=== PATIENT | male | born 1985 | race Caucasian/White ===

== ENCOUNTER 2024-01-09 16:07 | Emergency (ER) | payer OTHER ==
[~2024-01-09] VITALS: Ht 180.3 cm; Wt 104.3 kg
[2024-01-09 16:23] VITALS: BP_SYST 114; PULSE 64; RESP 16; TEMP 97; O2SAT 97
[2024-01-09 16:50] LABS: BASOPHILS % (AUTO) 0.5 % (0.0-2.0); EOSINOPHILS # (AUTO) 0.3 K/uL (0.0-0.4); EOSINOPHILS % (AUTO) 3.9 % (0.0-4.0); HEMOGLOBIN 15.6 g/dL (14.0-18.0); LYMPHOCYTES # (AUTO) 2.3 K/uL (1.0-5.5); LYMPHOCYTES % (AUTO) 26.8 % (20.5-51.5); MEAN CORPUSCULAR HEMOGLOBIN 28 pg (27-31); MEAN CORPUSCULAR HGB CONC 34 % (32-36); MEAN CORPUSCULAR VOLUME 83 fL (79.0-98.0); MONOCYTES # (AUTO) 0.7 K/uL (0.0-1.0); MONOCYTES % (AUTO) 8.5 % (1.7-9.3); NEUTROPHILS # (AUTO) 5.1 K/uL (1.8-7.7); NEUTROPHILS % (AUTO) 60.3 % (40.0-70.0); PLATELET COUNT (AUTO) 230 K/uL (130-430); RED BLOOD CELL COUNT(AUTO) 5.54 MIL/uL (4.2-6.2); RED CELL DISTRIBUTION WIDTH 14.5 % (9.0-15.0); WHITE BLOOD COUNT (AUTO) 8.5 K/uL (4.8-10.8)
[2024-01-09] MEDS: ONDANSETRON 4 MG ODT TAB PO ONE (17:09)
[2024-01-09] MEDS: THORAZINE (chlorproMAZINE) 25 MG TAB PO ONE (17:09)
[2024-01-09 17:12] LABS: ALBUMIN 4.1 g/dL (3.4-4.8); BILIRUBIN,DIRECT 0.1 mg/dL (0.0-0.3); CALCIUM 8.9 mg/dL (8.4-11.0); CREATININE 0.9 mg/dL (0.55-1.30); POTASSIUM 3.9 mmol/L (3.5-5.1); TOTAL BILIRUBIN 0.4 mg/dL (0.0-1.0); TOTAL PROTEIN, SERUM 7.3 g/dL (6.4-8.3)
[2024-01-09] MEDS ORDERED: THOR25 PO (17:31)
[2024-01-09 17:44] VITALS: BP_SYST 114; PULSE 64; RESP 16; TEMP 97; O2SAT 97
== END 2024-01-09 17:39 | disposition home or self-care (01) ==
LOC: SED 16:07
DX: R10.9 Unspecified abdominal pain (principal); R06.6 Hiccough; R11.0 Nausea; Z79.899 Other long term (current) drug therapy
CPT/HCPCS: 99283; 80076; 80048; 83690; 85025; 36415; Q0162; Q0161